=== PATIENT | female | born 1970 | race Caucasian/White ===

== ENCOUNTER → 2020-02-29 11:02 | Outpatient (CLI) | payer OTHER, SELFPAY ==
[2020-02-29 14:23] LABS: COVID19 -Nasal RAPID Negative (Negative)
== END ==
PROVIDERS: Visit Provider Physician Assistant
DX: Z11.59 Encounter for screening for other viral diseases (principal)
CPT/HCPCS: 87635

== ENCOUNTER → 2020-03-02 11:01 | Outpatient (CLI) | payer OTHER, SELFPAY ==
[2020-03-02 13:16] LABS: COVID19 -Nasal RAPID Negative (Negative)
== END ==
PROVIDERS: Visit Provider Physician Assistant
DX: Z11.59 Encounter for screening for other viral diseases (principal)
CPT/HCPCS: 87635

== ENCOUNTER → 2023-06-18 19:15 | Outpatient (CLI) | payer OTHER, SELFPAY ==
--- NOTE | 2023-06-18 19:18 | DI.MRI.S_ITS ---
PROCEDURE: MR HAND LT WO CON INDICATIONS: Boutonniere deformity of left finger(s) TECHNIQUE: Noncontrast coronal T1 spin echo and T2 fast spin echo with fat saturation, axial proton density fast spin echo and T2 fast spin echo with fat saturation, sagittal T1 spin echo and STIR through the hand and fingers. COMPARISON: [facility] [place], CR, XR FINGER(S) LEFT, 06/14/2023, 9:34. FINDINGS: Image quality: Excellent. Bones: The bones are normally aligned, without marrow contusions or fractures. No intra-osseous lesions. Interphalangeal joint(s): The radial collateral ligaments of the 4th PIP joint are thickened with intrasubstance T2 hyperintense signal. The ulnar collateral ligaments are intact.. The volar plate demonstrates normal morphology. The extensor central slips appear intact on sagittal images. Metacarpophalangeal joint(s): The accessory and proper collateral ligaments appear intact, as well as the volar plate and adjacent deep transverse metacarpal ligaments. The sagittal bands of the extensor borges appear normal. Extensor apparatus: The central slips insert normally on the middle phalangeal base. There is rupture of the conjoined and terminal tendons of the 4th digit approximately 4 mm from its insertion on 4th distal phalangeal base with up to 1.5 cm proximal retraction of torn tendon fibers to the level of 4th middle phalangeal base/proximal shaft. Surrounding soft tissue edema over dorsal aspect of 4th middle and distal phalanges is seen. More proximal portions of the extensor tendons also appear normal. Flexor apparatus: The flexor digitorum superficialis and profundus tendons both appear intact. All annular and cruciform pulleys appear intact, without adjacent soft tissue edema. Soft tissues: Visualized muscles demonstrate normal bulk and internal signal. No intramuscular masses identified. No ganglion cysts. IMPRESSION: 1. No marrow edema. No fracture or dislocation. No bony erosive changes or suspicious bony lesions. 2. Suggestion of ruptured chondroid and terminal tendons of the 4th digit approximately 4 mm from its insertion on 4th distal phalangeal base with up to 1.5 cm proximal retraction of torn tendon fibers to the level of 4th middle phalangeal base/proximal shaft. Adjacent soft tissue edema is seen. 3. The 4th digit extensor central slip is intact. 4. Flexor tendons are intact. 5. Sprain/low-grade partial-thickness tear involving radial collateral ligament of 4th PIP joint. Dictated by: Artem Graham M.D. on 06/19/2023 at 9:27 Approved by: Artem Graham M.D. on 06/19/2023 at 9:38
== END ==
LOC: MRI 19:16
PROVIDERS: PCP Internal Medicine; Referring Provider Orthopaedic Surgery; Visit Provider Orthopaedic Surgery
DX: M20.022 Boutonniere deformity of left finger(s) (principal); S63.635A Sprain of interphalangeal joint of left ring finger, initial encounter
CPT/HCPCS: 73218